=== PATIENT | male | born 1990 | race Caucasian/White ===

== ENCOUNTER 2021-08-14 16:57 | Emergency (ER) | payer SELFPAY ==
[2021-08-14] MEDS ORDERED: Boostrix 0.5 ML (Tdap) VIAL ONE (17:45)
[2021-08-14] MEDS ORDERED: Lidocaine 1% w/Epinephrine 1:100K 20 ML VIAL ONE (17:45)
[2021-08-14] MEDS ORDERED: Mupirocin 2% Ointment 22 GM Tube ONE (18:20)
[2021-08-14] MEDS ORDERED: Doxycycline 100 MG CAP ONE (18:43)
[2021-08-14] MEDS ORDERED: Cephalexin 500 MG CAP ONE (18:43)
== END 2021-08-14 18:55 | disposition home or self-care (01) ==
LOC: MADERS 16:57
DX: L02.416 Cutaneous abscess of left lower limb (principal); M71.561 Other bursitis, not elsewhere classified, right knee; E66.9 Obesity, unspecified; F17.210 Nicotine dependence, cigarettes, uncomplicated
CPT/HCPCS: 10060; 87070; 87205; 90471; 90715